=== PATIENT | female | born 1975 | race Asian ===

== ENCOUNTER 2021-11-08 13:44 | Emergency (ER) | payer OTHER ==
[~2021-11-08] VITALS: Ht 167.6 cm; Wt 55.9 kg
[2021-11-08 16:16] LABS: APPEARANCE,URINE HAZY (CLEAR); BILIRUBIN,URINE NEGATIVE (NEGATIVE); GLUCOSE, URINE (UA) NEGATIVE (NEGATIVE); KETONES,URINE NEGATIVE (NEGATIVE); LEUKOCYTE ESTERASE ,URINE MODERATE (NEGATIVE); NITRATE,URINE NEGATIVE (NEGATIVE); OCCULT BLOOD,URINE NEGATIVE (NEGATIVE); PROTEIN,URINE TRACE mg/dL (NEGATIVE); SPECIFIC GRAVITIY, URINE 1.024 (1.003-1.030); UROBILINOGEN,URINE <=1.0 mg/dL (<=1.0)
[2021-11-08 16:29] LABS: SQUAMOUS EPITHELIAL CELL,UR Few /LPF (None Seen)
[2021-11-08 16:30] LABS: AMORPHOUS SEDIMENT,UR Few /LPF (None Seen); BACTERIA,URINE Rare /HPF (None Seen)
[2021-11-08 16:31] LABS: MUCUS,URINE Rare LPF (None Seen)
[2021-11-08 16:44] VITALS: BP 123/60
[2021-11-08] MEDS ORDERED: CEPH500C3 PO (17:02)
== END 2021-11-08 17:08 | disposition home or self-care (01) ==
LOC: EMS 13:50
DX: N39.0 Urinary tract infection, site not specified (principal)
CPT/HCPCS: 81001; 87086; 99283

== ENCOUNTER 2023-09-03 11:45 | Emergency (ER) | payer OTHER ==
[~2023-09-03] VITALS: Ht 167.6 cm; Wt 63.6 kg
[~2023-09-03 11:45] MED LIST: CEPH-558 PO
[2023-09-03 11:55] VITALS: BP 117/69; PULSE 56; RESP 16; TEMP 98.3
[2023-09-03] MEDS ORDERED: LIDO700A15 TP (13:26)
[2023-09-03] MEDS ORDERED: BACL10TA PO (13:26)
[2023-09-03] MEDS ORDERED: IBUP-1492 PO (13:26)
[2023-09-03] MEDS ORDERED: KETOROLAC TROMETHAMINE 30 MG/ML VIAL IM ONE (13:30)
[2023-09-03] MEDS ORDERED: LIDOCAINE 5% TRANSDERMAL PATCH TD ONE (13:30)
[2023-09-03] MEDS ORDERED: BACLOFEN 10 MG TABLET PO ONE (13:30)
== END 2023-09-03 14:03 | disposition home or self-care (01) ==
LOC: EMS 12:41
DX: S39.012A Strain of muscle, fascia and tendon of lower back, initial encounter (principal); X58.XXXA Exposure to other specified factors, initial encounter; Y93.89 Activity, other specified; Y92.89 Other specified places as the place of occurrence of the external cause; Y99.8 Other external cause status
CPT/HCPCS: 99283; 72100; 96372; J1885